=== PATIENT | female | born 1965 | race American Indian/Alaskan Native ===

== ENCOUNTER 2017-10-17 09:52 | Outpatient (CLI) | payer BC ==
--- NOTE | 2017-10-17 14:33 | XRay Report ---
Bilateral shoulder: Next History: Shoulder pain. Findings: Arthritic changes are noted in the right and left a.c. joint. There is crescentic area of lucency identified in the subarticular region of the right and left humeral head suggestive of possible avascular necrosis, more pronounced on the right side. Arthritic changes are noted at glenohumeral joints, more pronounced on the left side. There appears to be calcification/ossification along the left coraco-clavicular ligament. IMPRESSION: Suspicion of avascular necrosis right and left humeral head. MRI scan recommended for further evaluation. Additional findings as detailed above.
== END 2017-10-17 09:53 | disposition home or self-care (01) ==
LOC: SPVIMAG 09:52
PROVIDERS: ATTEND Orthopaedic Surgery
DX: M19.011 Primary osteoarthritis, right shoulder (principal); M19.012 Primary osteoarthritis, left shoulder